=== PATIENT | female | born 2000 | race Caucasian/White ===

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

== ENCOUNTER 2022-06-19 20:44 | Emergency (ER) | payer OTHER, MEDICAID ==
[~2022-06-19] VITALS: Ht 172.7 cm; Wt 104.7 kg
[~2022-06-19 20:44] MED LIST changes: +L-NO1TBD4; +METH36TA5
[2022-06-19 20:47] VITALS: BP 134/90
== END 2022-06-19 21:42 | disposition left against medical advice (07) ==
LOC: M ED 20:44
DX: Z53.21 Procedure and treatment not carried out due to patient leaving prior to being seen by health care provider (principal)

== ENCOUNTER → 2022-06-26 | Outpatient (CLI) | payer OTHER, MEDICAID | LOC: M WHC 11:37 | PROVIDERS: ATTEND Nurse Practitioner Adult Health | DX: N93.9 Abnormal uterine and vaginal bleeding, unspecified (principal) ==

== ENCOUNTER 2024-05-22 04:35 | Emergency (ER) | payer MEDICAID, OTHER ==
[~2024-05-22] VITALS: Ht 172.7 cm; Wt 113.4 kg
[2024-05-22] MEDS: MAALOX 30 ML SUSP *UDC PO ONE (07:31)
[2024-05-22] MEDS: LIDOCAINE VISCOUS 2% SOLN 15ML UDC PO ONE (07:31)
[2024-05-22] MEDS: ONDANSETRON 4MG TAB PO ONE (07:31)
[2024-05-22 08:48] VITALS: BP 122/83; TEMP 97.1; O2SAT 98
== END 2024-05-22 08:53 | disposition home or self-care (01) ==
LOC: M ED 04:35
DX: R10.84 Generalized abdominal pain (principal); R11.2 Nausea with vomiting, unspecified; F41.9 Anxiety disorder, unspecified; F17.290 Nicotine dependence, other tobacco product, uncomplicated; Z79.899 Other long term (current) drug therapy